=== PATIENT | male | born 1980 | race Caucasian/White ===

== ENCOUNTER 2024-12-29 23:21 | Emergency (ER) | payer MEDICAID ==
[~2024-12-29] VITALS: Ht 177.8 cm; Wt 79.0 kg
[2024-12-29 23:23] VITALS: O2SAT 96
[2024-12-30 00:53] LABS: BASOPHILS % 0.3 % (0.0-2.0); EOSINOPHILS % 0.1 % (0.0-5.0); HEMATOCRIT. 45.2 % (42.0-52.0); HEMOGLOBIN. 15.1 g/dL (14.0-18.0); LYMPHOCYTES % 14.2 % (20.0-50.0); MEAN PLATELET VOLUME 9.4 fl (7.4-10.4); MONOCYTES % 5.5 % (2.0-8.0); NEUTROPHILS % 79.9 % (40.0-76.0); PLATELET 190 x1000/uL (130-400); RED BLOOD CELL COUNT 4.73 mill/uL (4.7-6.1); RED CELL DISTRIBUTION WIDTH 12.8 % (11.6-14.6)
[2024-12-30 01:10] LABS: CREATININE 1.1 mg/dL (0.6-1.3); UREA NITROGEN BLOOD 11 mg/dL (9-23)
[2024-12-30 01:11] LABS: TROPONIN I HIGH SENSITIVITY 24 ng/L (3.0-53)
[2024-12-30 03:42] LABS: TROPONIN I HIGH SENSITIVITY 24 ng/L (3.0-53)
[2024-12-30 04:12] VITALS: BP 113/78; PULSE 68; RESP 12; TEMP 36.7; O2SAT 100
== END 2024-12-30 04:17 | disposition home or self-care (01) ==
LOC: ER 23:21
DX: R07.89 Other chest pain (principal); Z87.820 Personal history of traumatic brain injury
CPT/HCPCS: 36415; 71045; 80048; 84484; 85025; 93005; 99285